=== PATIENT | female | born 1960 | race Caucasian/White ===

== ENCOUNTER → 2021-06-26 | Day surgery (SDC) | payer OTHER ==
[~2021-06-26] VITALS: Ht 160 cm; Wt 60.0 kg
[~2021-06-26] MED LIST: ATOR20TA PO; CHOL100013 PO; IV RINGERS,LACTATED 1000ML 1,000 ML IV SCH; LEVO112T2 PO; PROPOFOL 10 MG/ML (20ML) VIAL. IV ONE
[2021-06-26 08:35] VITALS: BP 177/79
[2021-06-26 09:33] VITALS: BP 151/72
--- NOTE | 2021-06-27 14:08 | PATHOLOGY ---
[facility] Accession Number: [id number] . 01 Material submitted: . rectum - RECTAL POLYP BIOPSY . 02 Diagnosis: Colorectal biopsies, rectal polyps: - Tubular adenoma (1). - Hyperplastic polyp (1). (DALTONM:guilherme; 06/27/2021) R 06/27/2021 1024 Local . 02 Comment: There is no high-grade dysplasia or evidence of malignancy. (DALTONM:guilherme; 06/27/2021) . 02 Electronically signed: . William Ojeda MD, Pathologist NPI- [id number] . 01 Gross description: . The specimen is received in formalin, labeled "Jo, Leta, rectal polyp BX". Received are 2 segments of pale sherwood tissue measuring 0.3 and 0.5 cm in maximum dimension. The specimen is entirely submitted in cassette A1. ([facility]; 06/26/2021) NRI/NRI 06/26/2021 1657 Local . 02 Pathologist provided ICD-10: D12.8, K62.1 . 02 CPT . 899225 Specimen Comment: A courtesy copy of this report has been sent to [phone] Specimen Comment: [phone] Specimen Comment: Report sent to / DR GRADY Specimen Comment: A duplicate report has been generated due to demographic updates. Performed at: [address] [facility] [address] [facility] [address], [place] [id number] MD Huy Lauren MD Phone: [phone] Performed at: 02 [facility] [address] [place], [place] [id number] MD William Ojeda MD Phone: [phone]
== END | disposition home or self-care (01) ==
LOC: ENDOS 08:15
PROVIDERS: ATTEND Internal Medicine Gastroenterology
DX: Z12.11 Encounter for screening for malignant neoplasm of colon (principal); K64.0 First degree hemorrhoids; D12.8 Benign neoplasm of rectum; K63.89 Other specified diseases of intestine; K57.30 Diverticulosis of large intestine without perforation or abscess without bleeding; I10 Essential (primary) hypertension; E78.00 Pure hypercholesterolemia, unspecified; E03.9 Hypothyroidism, unspecified; E66.9 Obesity, unspecified; Z79.899 Other long term (current) drug therapy; Z98.890 Other specified postprocedural states; Z72.89 Other problems related to lifestyle; Z91.013 Allergy to seafood; Z88.2 Allergy status to sulfonamides; Z88.8 Allergy status to other drugs, medicaments and biological substances
CPT/HCPCS: 45380; J2704; 88305